=== PATIENT | male | born 1985 | race Caucasian/White ===

== ENCOUNTER 2021-10-04 15:47 | Emergency (ER) | payer OTHER, SELFPAY ==
--- NOTE | ~2021-10-04 | US_ITS ---
EXAMINATION: US VENOUS ULTRASOUND WITH DOPPLER LOWER EXTREMITY, LEFT CLINICAL INFORMATION: Pain COMPARISON: None TECHNIQUE: Ultrasound of the deep veins is performed from the hip to the calf with compression sonography and color and pulse Doppler assessment. Spectral analysis with color-flow imaging is performed. FINDINGS: The visualized common femoral vein, superficial femoral vein, profunda femoral vein, popliteal vein, and the trifurcation region shows no evidence of deep venous thrombosis. There is thrombus seen in the greater saphenous vein from the mid thigh to the calf suggestive of superficial thrombophlebitis. The contralateral right common femoral vein is patent. There is no significant popliteal fossa cyst. US/US venous duplex LE LT IMPRESSION: No DVT demonstrated in the left lower extremity. Superficial thrombophlebitis in the left greater saphenous vein from the mid thigh to the calf. Findings will be communicated by the [employer] work flow security assurance analyst.
[2021-10-04 15:52] VITALS: BP 141/78; PULSE 72; RESP 20; TEMP 36.6; O2SAT 98; BMI 28.8
--- NOTE | 2021-10-04 17:42 | ED.LOWEXIN ---
HPI - Extremity Injury (Lower) General Chief Complaint: Extremity Injury, Lower Stated Complaint: Blood Clot L Leg Time Seen by Provider: 10/04/21 17:14 Source: patient Mode of arrival: ambulatory Limitations: no limitations History of Present Illness HPI Narrative: 36 yo healthy male presents to the ER left lower extremity pain, swelling and redness with concern for DVT. He is on his feet hurt for 12-14 hours a day and often wears compression stockings. Five days ago he fell sleep with the compression stocking on, it rolled down just past his knee and applied a lot of pressure to this area. He woke up after several hours and noticed the area was indented, tender and painful. He reports since then he has had pain both distally and proximally to this area. There is overlying redness and tenderness of the vein in his lower leg. He tried using a massager to the area and he has worsening redness now. He tried resting and elevating his leg as well as ice. He denies any shortness of breath or any chest pain. No personal or famimly history of blood clots. MD complaint: leg injury Onset (ago): day(s) (5) Injury: Left: thigh and knee Place: home Severity: moderate Severity scale (1-10): 5 Relieving factors: immobilization and rest Exacerbating factors: palpation Associated symptoms: swelling and ambulatory Other symptoms: none Treatments prior to arrival: cold therapy Related Data Previous Rx's Medication Instructions Recorded apixaban 5 mg tablet (Eliquis) 5 mg PO BID #90 tabs 10/04/21 Allergies Allergy/AdvReac Type Severity Reaction Status Date / Time No Known Allergies Allergy Unverified 01/02/20 19:14 [No Known Allergies*] Review of Systems Review of Systems: Constitutional: No Fever, No Chills Cardiovascular: No Chest Pain, No SOB, No Orthopnea, No Edema Respiratory: No Cough, No Sputum, No Wheezing, No dyspnea Gastrointestinal: No Nausea, No Vomiting, No Diarrhea, No abdominal Pain, No Hematochezia, No Melena Genitourinary: No Dysuria, No Urinary Frequency, No Hematuria Musculoskeletal: No joint pain, No Myalgias Skin: No Skin Lesions, No rash, +redness Neuro: No Weakness, No Numbness, No Dizziness, No Headache Psych: No Anxiety/Panic, No Depression Heme/Lymph: No Bruising, No Lymphadenopathy Endocrine: No Polyuria, No Polydipsia PMFSH Social History Social History Advance Directives: No Advance Directives Information Provided: No Physical Exam Vital Signs: Vital Signs: Last Vital Signs Temp 97.9 F 10/04/21 19:27 Pulse 54 10/04/21 19:27 Resp 18 10/04/21 19:27 BP 127/78 10/04/21 19:27 Pulse Ox 97 10/04/21 19:27 O2 Del Method 10/04/21 19:27 BMI result Body Mass Index 28.8 Appearance: Alert. Oriented X3. No acute distress. Eyes: Pupils equal, round and reactive to light. ENT: Pharynx normal. Neck: Normal inspection. Neck supple. CVS: Normal heart rate and rhythm. Pulses normal. Respiratory: No respiratory distress. Breath sounds normal. Abdomen: Soft and nontender. +BS x4 Skin: Skin warm and dry. Normal skin color. Normal skin turgor. No rashes. Extremities: No lower extremity edema. Left lower leg with small area of erythema medial to the knee and along the area of the posterior tibial vein, tender and warm. No calf tenderness. Neuro: Oriented X 3. No motor deficit. No sensory deficit. Steady gait Course Course Course Narrative: 36-year-old healthy male presents to the ER for evaluation of a possible blood clot. This started after he fell sleep with compression stocking, around the area of his knee were was very tight when he woke up. He has redness, swelling, tenderness in the venous distribution of the posterior tibial vein. This extends to the superficial greater saphenous vein in the proximal thigh. Ultrasound is showing superficial thrombophlebitis in the left greater saphenous vein from the mid thigh to the calf. No deep veinous thrombosis are appreciated in the left lower extremity. Given the extent of the superficial venous thrombophlebitis, her neck mentation is are to treat with systemic anticoagulation for at least 3 months. Patient was counseled on the results, current recommendations and initiation of anticoagulation. Will start him on Eliquis and refer to his PCP and Dr. Chacon for further management. Baseline labs ordered prior to initiation of anticoagulation. Reevaluation(s) Reevaluation #1: Labs show mild polycythemia, hematocrit 55. Unknown baseline. Platelets are normal, kidney function is normal. Safe to start Eliquis, will refer to Dr. Joe for polycythemia and evaluation of superficial thrombophlebitis as well as Dr. Chacon. Stable for discharge home. Patient agrees with plan and has been counseled extensively on the use of oral anticoagulation. All questions have been answered at this time. MDM - Extremity Injury (Lower) Lab Data Result diagrams: 10/04/21 18:30 10/04/21 18:30 Labs: Lab Results 10/04/21 10/04/21 10/04/21 Range/Units 18:30 18:30 18:30 WBC 7.0 (4.8-10.8) X10*3/uL RBC 6.47 H (4.60-5.80) X10*6/uL Hgb 18.3 H (14.0-18.0) g/dl Hct 55.3 H (42.0-52.0) % MCV 85.5 (80.0-98.0) fL MCH 28.3 (27.0-33.0) pg MCHC 33.1 (31.0-36.0) g/dl RDW 14.3 (11.0-16.0) % Plt Count 241 (160-400) X10*3/uL MPV 9.5 (9.4-12.4) fL Immature Gran % (Auto) 0.4 (0.0-0.4) % Neut % (Auto) 50.9 (45-73) % Lymph % (Auto) 37.3 (20-40) % [place] % (Auto) 8.1 (2-11) % Eos % (Auto) 2.9 (0-4) % Baso % (Auto) 0.4 (0-2) % Lymph # (Auto) 2.6 (1.2-4.9) X10*3/uL [place] # (Auto) 0.6 (0.1-1.2) X10*3/uL Eos # (Auto) 0.2 (0.0-0.4) X10*3/uL Baso # (Auto) 0.0 (0.0-0.2) X10*3/uL Abs Immat Gran (auto) 0.03 (0.00-0.03) X10*3/uL Absolute Neuts (auto) 3.5 (2.0-8.3) x10*3/uL Absolute Nucleated RBC 0.000 (0.0-0.012) X10*3/uL Nucleated RBC % (auto) 0.0 (0.0-0.2) /100WBC PT 10.5 (9.9-13.0) SEC INR 0.9 (0.9-1.1) APTT (24.1-38.0) SEC Sodium 140 (135-145) mmol/L Potassium 4.2 (3.3-5.1) mmol/L Chloride 106 (96-108) mmol/L Carbon Dioxide 25 (22-29) mmol/L Anion Gap 13 (12-20) BUN 23 H (9-16) mg/dL Creatinine 0.99 (0.5-1.4) mg/dL Estim Creat Clear Calc 112.4 Estimated GFR > 60 Random Glucose 88 (60-115) mg/dL Calcium 9.5 (8.4-10.2) mg/dL Total Bilirubin 0.4 (0.0-1.0) mg/dL Direct Bilirubin 0.2 (0.0-0.5) mg/dL AST 26 (5-37) U/L ALT 28 (0-40) U/L Alkaline Phosphatase 54 (39-117) U/L Total Protein 7.8 (6.5-8.0) g/dL Albumin 4.9 (3.5-5.0) g/dL 10/04/21 Range/Units 18:30 WBC (4.8-10.8) X10*3/uL RBC (4.60-5.80) X10*6/uL Hgb (14.0-18.0) g/dl Hct (42.0-52.0) % MCV (80.0-98.0) fL MCH (27.0-33.0) pg MCHC (31.0-36.0) g/dl RDW (11.0-16.0) % Plt Count (160-400) X10*3/uL MPV (9.4-12.4) fL Immature Gran % (Auto) (0.0-0.4) % Neut % (Auto) (45-73) % Lymph % (Auto) (20-40) % [place] % (Auto) (2-11) % Eos % (Auto) (0-4) % Baso % (Auto) (0-2) % Lymph # (Auto) (1.2-4.9) X10*3/uL [place] # (Auto) (0.1-1.2) X10*3/uL Eos # (Auto) (0.0-0.4) X10*3/uL Baso # (Auto) (0.0-0.2) X10*3/uL Abs Immat Gran (auto) (0.00-0.03) X10*3/uL Absolute Neuts (auto) (2.0-8.3) x10*3/uL Absolute Nucleated RBC (0.0-0.012) X10*3/uL Nucleated RBC % (auto) (0.0-0.2) /100WBC PT (9.9-13.0) SEC INR (0.9-1.1) APTT 37.5 (24.1-38.0) SEC Sodium (135-145) mmol/L Potassium (3.3-5.1) mmol/L Chloride (96-108) mmol/L Carbon Dioxide (22-29) mmol/L Anion Gap (12-20) BUN (9-16) mg/dL Creatinine (0.5-1.4) mg/dL Estim Creat Clear Calc Estimated GFR Random Glucose (60-115) mg/dL Calcium (8.4-10.2) mg/dL Total Bilirubin (0.0-1.0) mg/dL Direct Bilirubin (0.0-0.5) mg/dL AST (5-37) U/L ALT (0-40) U/L Alkaline Phosphatase (39-117) U/L Total Protein (6.5-8.0) g/dL Albumin (3.5-5.0) g/dL Critical Care Time Critical Care Time Critical Care Time: No Discharge Plan Discharge Clinical Impression: Superficial phlebitis and thrombophlebitis of left lower extremity, Polycythemia Patient Disposition: Home, Self-Care Instructions: Superficial Thrombophlebitis (ED), Polycythemia Vera (DC) Additional Instructions: Take the prescribed blood thinner as directed - you will need to be on this for at least 3 months. You will need to take 2 tablets in the morning and 2 tablets at night for the 1st seven days, start this tonight After the 1st week you take one tablet in the morning and one tablet at night Follow up with your doctor for refills of this medication and for further management You can also follow up with our Vascular doctor for management - name and number below Prescriptions: New Eliquis 5 mg tablet 5 mg PO BID Qty: 90 0RF Rx Instructions: Take 2 tabs 2 times per day for 1 week, then take 1 tab 2 times per day for the duration of treatment Referrals: Yunior Chacon MD [Physician] - (SVT in greater saphenous vein to calf) Anoop Joe MD [Physician] - (hematocrit 55, extensive superficial thrombophebitis LLE) Interventions: ED Discharge Assessment Last Done: 10/04/21 19:29 Discharge Date/Time: 10/04/21 19:31
[2021-10-04 18:38] LABS: MANUAL DIFF FLAG NO
[2021-10-04 18:54] LABS: Alanine Aminotransferase 28 U/L (0-40); Albumin Level 4.9 g/dL (3.5-5.0); Alkaline Phosphatase 54 U/L (39-117); Anion Gap 13 (12-20); Aspartate Amino Transferase 26 U/L (5-37); Bilirubin Direct 0.2 mg/dL (0.0-0.5); Bilirubin Total 0.4 mg/dL (0.0-1.0); Blood Urea Nitrogen 23 mg/dL (9-16); Calcium 9.5 mg/dL (8.4-10.2); Carbon Dioxide 25 mmol/L (22-29); Chloride 106 mmol/L (96-108); Creatinine Clr Calc Pharmacy 112.4; Estimated Glomerular Filt Rate > 60; Glucose Random 88 mg/dL (60-115); Potassium 4.2 mmol/L (3.3-5.1); Sodium 140 mmol/L (135-145); Total Protein 7.8 g/dL (6.5-8.0)
[2021-10-04 18:58] LABS: INTERNATIONAL NORM RATIO 0.9 (0.9-1.1); Prothrombin Time 10.5 SEC (9.9-13.0)
[2021-10-04 19:01] LABS: Partial Thromboplastin Time 37.5 SEC (24.1-38.0)
[2021-10-04 19:02] LABS: Basophils Percent Auto 0.4 % (0-2); Eosinophils Absolute Auto 0.2 X10*3/uL (0.0-0.4); Eosinophils Percent Auto 2.9 % (0-4); Hemoglobin 18.3 g/dl (14.0-18.0); Imm Gran Abs Auto 0.03 X10*3/uL (0.00-0.03); Imm Gran Pct Auto 0.4 % (0.0-0.4); Lymphocytes Absolute Auto 2.6 X10*3/uL (1.2-4.9); Lymphocytes Percent Auto 37.3 % (20-40); Mean Corpuscular HGB Conc 33.1 g/dl (31.0-36.0); Mean Corpuscular Hemoglobin 28.3 pg (27.0-33.0); Mean Corpuscular Volume 85.5 fL (80.0-98.0); Mean Platelet Volume 9.5 fL (9.4-12.4); Monocytes Absolute Auto 0.6 X10*3/uL (0.1-1.2); Monocytes Percent Auto 8.1 % (2-11); Neutrophils Absolute Auto 3.5 x10*3/uL (2.0-8.3); Neutrophils Percent Auto 50.9 % (45-73); Platelet Count 241 X10*3/uL (160-400); Red Blood Count 6.47 X10*6/uL (4.60-5.80); Red Cell Distribution Width 14.3 % (11.0-16.0)
[2021-10-04 19:24] LABS: Hematocrit 55.3 % (42.0-52.0)
[2021-10-04 19:27] VITALS: BP 127/78; PULSE 54; RESP 18; TEMP 36.6; O2SAT 97
== END 2021-10-04 19:31 | disposition home or self-care (01) ==
PROVIDERS: Physician Assistant; Emergency Provider Emergency Medicine
DX: I80.02 Phlebitis and thrombophlebitis of superficial vessels of left lower extremity (principal); R60.0 Localized edema; D75.1 Secondary polycythemia; Z79.01 Long term (current) use of anticoagulants; Z79.899 Other long term (current) drug therapy
CPT/HCPCS: 36415; 80048; 80076; 85025; 85610; 85730; 93971; 99283